=== PATIENT | male | born 1980 | race Caucasian/White ===

== ENCOUNTER 2018-11-03 14:30 | Emergency (ER) | payer MEDICAID ==
[2018-11-03 14:36] VITALS: BP 120/70
[2018-11-03] MEDS ORDERED: IPRATROPIUM/ALBUTEROL 3 ML DEYVIAL IH ONE (14:56)
--- NOTE | 2018-11-03 15:21 | EDPHY ---
H & P Stated Complaint: cough, wheezing and sob x 14 days, fever and diarrhea Time Seen by Provider: 11/03/18 14:57 HPI/ROS: CHIEF COMPLAINT: Cough HISTORY OF PRESENT ILLNESS: 38-year-old previously healthy male presents with cough. Onset of myalgias, fever and cough 2 weeks ago. Continues to have daily fever and a dry cough. Now associated with wheezing and shortness of breath. Shortness of breath occurs with episodes of coughing. 1 episode of diarrhea today only. No vomiting and no prior history of pneumonia. REVIEW OF SYSTEMS: complete 10 point ROS reviewed and is negative except for the noted elements in the HPI - Personal History Current Tetanus Diphtheria and Acellular Pertussis (TDAP): No - Medical/Surgical History Hx Asthma: No Hx Chronic Respiratory Disease: No Hx Diabetes: No Hx Cardiac Disease: No Hx Renal Disease: No Hx Cirrhosis: No Hx Alcoholism: No Hx HIV/AIDS: No Hx Splenectomy or Spleen Trauma: No Other PMH: cyst removal from neck - Social History Smoking Status: Current every day smoker Alcohol Use: Rarely Drug Use: None - Physical Exam Exam: General Appearance: Alert, pleasant, nontoxic-appearing Eyes: Pupils equal and round, no conjunctival pallor or injection ENT, Mouth: Mucous membranes moist Neck: Normal inspection Respiratory: normal respiratory rate, good air exchange, faint rales rt mid lung field, no wheezing Cardiovascular: Regular rate and rhythm Gastrointestinal: Abdomen is soft and nontender Neurological: A&O, nonfocal, normal gait Skin: Warm and dry Extremities: Normal inspection Psychiatric: Mood and affect normal Constitutional: Initial Vital Signs Temperature (C) 37.1 C 11/03/18 14:33 Heart Rate 116 H 11/03/18 14:33 Respiratory Rate 20 11/03/18 14:33 Blood Pressure 120/70 11/03/18 14:33 O2 Sat (%) 96 11/03/18 14:33 O2 Delivery Mode Room Air Allergies/Adverse Reactions: No Known Allergies Allergy (Unverified 11/03/18 14:32) Home Medications: Medication Instructions Recorded Albuterol [Proventil Inhaler HFA 2 puffs IH QID PRN #1 mdi 11/03/18 (*)] Azithromycin [Zithromax] 250 mg PO DAILY #6 tab 11/03/18 Medical Decision Making - Diagnostics Imaging Results: Imaging Impressions Chest X-Ray 11/03/18 14:55 Impression: 1. Diffuse right pneumonia, most prominent in the right middle lobe. 2. Recommend follow up until clear. Findings and recommendations discussed with Emergency Department physician, Azul Ventura M.D., at 1543 hours, on November 03, 2018. Final report concurs with initial preliminary interpretation. Imaging: Discussed imaging studies w/ bingo caller Radiologist, I viewed and interpreted images myself ED Course/Re-evaluation: This patient presents with a 2 week history of cough and fever. Chest x-ray reveals a right middle lobe infiltrate, extending into the right lower lobe. Results discussed with the patient. He is well-appearing and not hypoxic. DuoNeb given for history of wheezing and frequent cough. No significant change after the DuoNeb. Decadron 6 mg orally given for sore throat. Discussed the option of admission with him, but he does not feel that he needs admission. He is not hypoxic or vomiting. O2 sat 91-93% with ambulation. He clearly understands that he has a significant pneumonia and he should return for worsening symptoms or any concerns. Will follow up with PCP. Zithromax 500 mg orally given prior to discharge. Differential Diagnosis: includes though not limited to bronchitis, empyema, PE, ptx, pulm edema. - Data Points Medications Given: Discontinued Medications Albuterol/Ipratropium (Duoneb) 3 ml IH EDNOW ONE Stop: 11/03/18 14:57 Last Admin: 11/03/18 15:33 Dose: 3 ml Azithromycin (Zithromax) 500 mg PO EDNOW ONE PRN Reason: Protocol Stop: 11/03/18 17:01 Last Admin: 11/03/18 17:08 Dose: 500 mg Dexamethasone (Decadron) 6 mg PO EDNOW ONE Stop: 11/03/18 16:07 Last Admin: 11/03/18 16:44 Dose: 6 mg Departure - Departure Disposition: Home, Routine, Self-Care Clinical Impression: Pneumonia Qualifiers: Pneumonia type: due to unspecified organism Laterality: right Lung location: upper lobe of lung Qualified Code(s): J18.1 - Lobar pneumonia, unspecified organism Condition: Critical Instructions: Bacterial Pneumonia (ED) Additional Instructions: Tylenol 650 mg every 4 hr as needed for fever. Return for worsening symptoms, including increasing shortness of breath or vomiting. Follow-up in 2 days for recheck. Referrals: Yunier Richard MD [Medical Doctor] - 2-3 days without fail Stand Alone Forms: Work Excuse Prescriptions: Albuterol [Proventil Inhaler HFA (*)] 2 puffs IH QID PRN #1 mdi PRN Reason: Short Of Breath/Dyspnea Azithromycin [Zithromax] 250 mg PO DAILY #6 tab
[2018-11-03] MEDS ORDERED: DEXAMETHASONE 4 MG TAB PO ONE (16:06)
[2018-11-03] MEDS ORDERED: AZITHROMYCIN 250 MG TAB PO ONE (17:00)
== END 2018-11-03 17:13 | disposition home or self-care (01) ==
DX: J18.1 Lobar pneumonia, unspecified organism (principal); F17.200 Nicotine dependence, unspecified, uncomplicated

== ENCOUNTER 2018-11-22 12:18 | Emergency (ER) | payer MEDICAID ==
[2018-11-22 12:32] VITALS: BP 124/80
--- NOTE | 2018-11-22 12:44 | EDPHY ---
H & P Stated Complaint: R anterior rib pain Time Seen by Provider: 11/22/18 12:43 HPI/ROS: CHIEF COMPLAINT: Right anterior rib pain HISTORY OF PRESENT ILLNESS: The patient presents to the ED with complaints of right anterior rib pain. Patient reportedly was treated pneumonia 2 weeks ago. The patient reportedly had been coughing quite a bit. He has reproducible tenderness over his right mid ribs. The patient denies any ongoing fever or productive cough. He denies any asymmetric calf pain or swelling. He denies additional acute complaints. REVIEW OF SYSTEMS: A comprehensive 10 point review of systems is otherwise negative aside from elements mentioned in the history of present illness. Source: Patient - Personal History Current Tetanus/Diphtheria Vaccine: Unsure Current Tetanus Diphtheria and Acellular Pertussis (TDAP): Unsure - Medical/Surgical History Hx Asthma: No Hx Chronic Respiratory Disease: No Hx Diabetes: No Hx Cardiac Disease: No Hx Renal Disease: No Hx Cirrhosis: No Hx Alcoholism: No Hx HIV/AIDS: No Hx Splenectomy or Spleen Trauma: No Other PMH: cyst removal from neck, PNA - Social History Smoking Status: Current every day smoker - Physical Exam Exam: General Appearance: Alert, no distress Eyes: Pupils equal and round no pallor or injection ENT, Mouth: Mucous membranes moist Respiratory: There are no retractions, lungs are clear to auscultation, tenderness to palpation over the ribs in the right mid axillary line Cardiovascular: Regular rate and rhythm Gastrointestinal: Abdomen is soft and nontender, no masses, bowel sounds normal Neurological: 5/5 strength noted all 4 extremities Skin: Warm and dry, no rashes Musculoskeletal: Neck is supple nontender Extremities: symmetrical, full range of motion Constitutional: Initial Vital Signs Temperature (C) 36.8 C 11/22/18 12:31 Heart Rate 88 11/22/18 12:31 Respiratory Rate 16 11/22/18 12:31 Blood Pressure 124/80 H 11/22/18 12:31 O2 Sat (%) 94 11/22/18 12:31 O2 Delivery Mode Room Air Allergies/Adverse Reactions: No Known Allergies Allergy (Unverified 11/22/18 12:31) Medical Decision Making - Diagnostics Imaging Results: Imaging Impressions Chest X-Ray 11/22/18 12:47 Impression: 1. No rib fracture, pneumothorax or explanation for pain. 2. Resolved right lung airspace consolidation. ED Course/Re-evaluation: Patient underwent a chest x-ray in the emergency department which demonstrates no obvious fracture, pneumothorax or worsening pneumonia. The patient has had resolution of his prior pneumonia. The patient is nontoxic and well-appearing. The patient is advised to use ibuprofen as needed for rib discomfort. He has been informed of the possibility of a nondisplaced rib fracture. Differential Diagnosis: Differential diagnosis considered includes rib fracture, pneumothorax, worsening pneumonia Departure - Departure Disposition: Home, Routine, Self-Care Clinical Impression: Chest wall pain Condition: Good Instructions: Chest Pain (ED) Additional Instructions: 1. Take Ibuprofen or Motrin 600 mg by mouth three times a day. 2. Your x-ray demonstrates no evidence of an obvious rib fracture or collapsed lung. 3. Your pneumonia has improved. Referrals: NONE *PRIMARY CARE P,. [Primary Care Provider] - As per Instructions
== END 2018-11-22 13:30 | disposition home or self-care (01) ==
DX: R07.89 Other chest pain (principal); F17.200 Nicotine dependence, unspecified, uncomplicated

== ENCOUNTER 2019-02-20 10:52 | Emergency (ER) | payer MEDICAID, OTHER ==
[2019-02-20 10:55] VITALS: BP 119/64
--- NOTE | 2019-02-20 11:07 | EDPHY ---
H & P Time Seen by Provider: 02/20/19 10:57 HPI/ROS: CHIEF COMPLAINT: Multiple skin lesions, history of methamphetamine abuse HISTORY OF PRESENT ILLNESS: 38-year-old homeless male history of methamphetamine abuse complaining of multiple lesions on his arms that he has been picking at. Tetanus out-of-date. These areas are focally tender. No genitalia lesions. PRIMARY CARE PROVIDER: REVIEW OF SYSTEMS: 10 systems reviewed and negative with the exception of the elements mentioned in the history of present illness PAST MEDICAL & SURGICAL HISTORY: No pertinent medical or surgical history SOCIAL HISTORY: Positive for methamphetamine abuse PHYSICAL EXAM (Prior to examination, patient consented to physical exam, hands were washed and my usual and customary physical exam procedures followed) 1) GENERAL: Well-developed, well-nourished, alert and oriented. Appears to be in no acute distress. 2) HEAD: Normocephalic, atraumatic 3) HEENT: Pupils equal, round, reactive to light bilaterally. Sclera anicteric. Nasopharynx, oropharynx, clear, no lesions. Moist Mucous membranes. No intraoral lesions. 4) NECK: Full range of motion, no meningeal signs. 5) LUNGS: Clear auscultation bilaterally, no wheezes, no rhonchi, no retractions. 6) HEART: Regular rate and rhythm, no murmur, no heave, no gallop. 7) ABDOMEN: No guarding, no rebound, no focal tenderness, negative McBurney's, negative Fernandez's, negative Rovsing's, negative peritoneal sign, 8) MUSCULOSKELETAL: Moving all extremities, no focal areas of tenderness, no obvious trauma. No peripheral edema or discoloration. 9) BACK: No CVA tenderness, no midline vertebral tenderness, no fluctuance, no step-off, no obvious trauma, no visual or palpable abnormality. 10) SKIN: No rash, no petechiae. 11) Psychiatric: Patient is oriented X 3, there is no agitation. DIFFERENTIAL DIAGNOSIS: In no particular order including but not limited to MRSA furunculosis, cellulitis, delusional parasitosis Smoking Status: Current every day smoker Constitutional: Initial Vital Signs Heart Rate 97 02/20/19 10:54 Respiratory Rate 16 02/20/19 10:54 Blood Pressure 119/64 02/20/19 10:54 O2 Sat (%) 94 02/20/19 10:54 O2 Delivery Mode Room Air Allergies/Adverse Reactions: No Known Allergies Allergy (Unverified 02/20/19 10:55) Home Medications: Medication Instructions Recorded Cephalexin [Keflex] 500 mg PO TID 10 Days cap 02/20/19 Sulfamethox/Tmp 800/160 mg 1 tab PO BID@1000,2200 10 Days tab 02/20/19 [Bactrim Ds] MDM/Departure - [facility] ED Course/Re-evaluation: Patient has a history of methamphetamine abuse and has been picking at his skin. He has multiple skin lesions. No evidence of diffuse cellulitis. No evidence of necrotizing fasciitis. Will initiate oral antibiotic therapy. I think he can be treated on outpatient basis. Recommend cessation of methamphetamine abuse. Patient feels comfortable being discharged. All questions and concerns addressed by myself. Patient given my usual and customary discharge precautions and instructions regarding their clinical impression. Care of patient under supervision of secondary supervising physician Dr Oliver . - Depart Disposition: Home, Routine, Self-Care Clinical Impression: Furunculosis of multiple sites Condition: Good Instructions: Furunculosis and Carbunculosis (ED) Prescriptions: Cephalexin [Keflex] 500 mg PO TID 10 Days cap Sulfamethox/Tmp 800/160 mg [Bactrim Ds] 1 tab PO BID@1000,2200 10 Days tab Referrals: [facility],. [Clinic] - 1-2 days without fail
== END 2019-02-20 11:16 | disposition home or self-care (01) ==
DX: L02.828 Furuncle of other sites (principal); F15.10 Other stimulant abuse, uncomplicated; Z59.0 Homelessness